=== PATIENT | male | born 1955 | race Caucasian/White ===

== ENCOUNTER 2022-06-04 07:45 | Outpatient (RCR) | payer OTHER, SELFPAY ==
--- NOTE | 2022-05-09 14:23 | URNOTE ---
Request received from [facility] for prior authorization of Rituxan [id number]. Per [employer] Intake Team Rituxan has been approved from 12/25/2021 through 12/25/2023. Authorization #[id number]
[2022-06-04 08:00] VITALS: BP 111/63; PULSE 47; RESP 16; TEMP 36.1; O2SAT 97
[2022-06-04 08:53] LABS: Chloride* 106 mmol/L (96-114); Potassium* 4.6 mmol/L (3.6-5.1); Sodium* 137 mmol/L (135-149)
[2022-06-04 08:54] LABS: Hematocrit 39.3 % (37.0-53.0); Hemoglobin* 13.3 gm/dL (13.5-17.5); Mean Corpuscular HGB Conc 34 gm/dL (32-36); Mean Corpuscular Hemoglobin 29 pg (26-34); Mean Corpuscular Volume 86 fL (80-100); Platelet Count* 160 K/uL (140-440); Red Blood Count 4.57 m/uL (4.30-5.90); White Blood Count* 6.95 K/uL (4.50-11.00)
[2022-06-04 08:55] LABS: Basophils Percent Auto 0.1 % (0.0-3.0); Eosinophils Percent Auto 4.9 % (0.0-7.0); Immature Granulocytes Pct Auto 0.4 %; Monocytes Percent Auto 11.1 % (0.0-11.0); Neutrophils Percent Auto 65.5 % (42.0-72.0); Slide Review Reflex No
[2022-06-04 08:56] LABS: Blood Urea Nitrogen* 39 mg/dL (7-30); Carbon Dioxide* 23 mmol/L (20-32); Creatinine* 1.7 mg/dL (0.5-1.5); Estimated Glomerular Filt Rate 44 ml/min
[2022-06-04 08:57] LABS: Calcium* 9.1 mg/dL (8.4-10.6); Glucose* 127 mg/dL (60-115)
[2022-06-04] MEDS: HYDROCORTISONE SOD SUCCINATE 50 MG/ML inj 100 MG IVP (09:46)
[2022-06-04] MEDS: ACETAMINOPHEN 325 MG TABLET 650 MG PO (09:46)
[2022-06-04] MEDS: diphenhydrAMINE 25 MG CAPSULE 50 MG PO (09:47)
--- NOTE | 2022-06-04 15:21 | ONC.NURNOTE ---
Pt tolerated Rituxan well; infused beginning at 50 ml/hr, increase by 50 ml/hr q 30 min until 400 ml/hr.
== END 2022-12-01 23:59 | disposition home or self-care (01) ==
LOC: CCIC 07:45
PROVIDERS: Internal Medicine Hematology & Oncology; Visit Provider Clinical Nurse Specialist
DX: D89.89 Other specified disorders involving the immune mechanism, not elsewhere classified (principal)
CPT/HCPCS: 36415; 80048; 85025; 96376; 96413; 96415; A9270; J1720; J7030; J9312

== ENCOUNTER 2023-04-11 10:41 | Outpatient (CLI) | payer OTHER, SELFPAY ==
[2023-04-11 11:28] LABS: Appearance Urine Clear (Clear); Bilirubin Urine Negative (Negative); Blood Urine Negative (Negative); Color Urine Yellow (Yellow); Glucose Urine Negative (Negative); Ketones Urine Negative (Negative); Leukocyte Esterase Urine Negative (Negative); Nitrite Urine Negative (Negative); Protein Urine Negative (Negative); Specific Gravity Urine 1.025 (1.000-1.030); Urobilinogen Urine 0.2 (0.2-1.0); pH Urine 5.5 (5.0-8.5)
[2023-04-11 11:29] LABS: Basophils Absolute Auto 0.02 K/uL (0.00-0.30); Basophils Percent Auto 0.3 % (0.0-3.0); Eosinophils Absolute Auto 0.24 K/uL (0.00-0.50); Eosinophils Percent Auto 3.5 % (0.0-7.0); Hematocrit 37.6 % (37.0-53.0); Hemoglobin* 12.1 gm/dL (13.5-17.5); Immature Granulocytes Abs Auto 0.03 K/uL (0.00-0.30); Immature Granulocytes Pct Auto 0.4 %; Lymphocytes Percent Auto 19.1 % (20-44); Mean Corpuscular HGB Conc 32 gm/dL (32-36); Mean Corpuscular Hemoglobin 29 pg (26-34); Mean Corpuscular Volume 90 fL (80-100); Monocytes Percent Auto 11.2 % (0.0-11.0); Neutrophils Absolute Auto 4.45 K/uL (1.7-7.0); Neutrophils Percent Auto 65.5 % (42.0-72.0); Platelet Count* 136 K/uL (140-440); RDW Coefficient of Variation % 13.9 % (11.5-15.5); Red Blood Count 4.19 m/uL (4.30-5.90)
[2023-04-11 11:32] LABS: Slide Review Reflex No
[2023-04-11 11:42] LABS: Albumin* 4.1 g/dL (3.3-5.0); Chloride* 110 mmol/L (96-114); Total Protein Urine < 5 mg/dL
[2023-04-11 11:43] LABS: Creatinine Urine 96.4 mg/dL; Potassium* 4.3 mmol/L (3.6-5.1); Sodium* 144 mmol/L (135-149)
[2023-04-11 11:45] LABS: Amylase* 95 U/L (18-89)
[2023-04-11 11:46] LABS: Alkaline Phosphatase* 45 U/L (40-150); Aspartate Amino Transferase* 22 U/L (12-35); Bilirubin Total* 0.4 mg/dL (0.1-1.5); Blood Urea Nitrogen* 27 mg/dL (7-30); Carbon Dioxide* 26 mmol/L (20-32); Creatinine* 1.4 mg/dL (0.5-1.5); Estimated Glomerular Filt Rate 55 ml/min; Glucose* 118 mg/dL (60-115); Total Protein* 6.5 g/dL (6.0-8.3)
[2023-04-11 11:47] LABS: Alanine Aminotransferase* 25 U/L (4-50); Calcium* 8.8 mg/dL (8.4-10.6); Lipase* 179 U/L (23-300)
[2023-04-11 11:50] LABS: C Reactive Protein* < 0.5 mg/dL (0.5-1.0)
[2023-04-11 12:20] LABS: Erythrocyte SedimentationRate* 11 mm/hr (2-15)
== END 2023-04-11 10:42 | disposition home or self-care (01) ==
PROVIDERS: PCP Internal Medicine Rheumatology; Visit Provider Internal Medicine Rheumatology
DX: D89.89 Other specified disorders involving the immune mechanism, not elsewhere classified (principal); K86.1 Other chronic pancreatitis; K83.09 Other cholangitis
CPT/HCPCS: 36415; 80048; 80076; 81003; 82150; 82570; 82787; 83690; 84156; 85025; 85651; 86140

== ENCOUNTER 2024-12-13 09:37 | Emergency (ER) | payer MEDICARE, SELFPAY ==
[2024-12-13 09:44] VITALS: BP 145/93; PULSE 49; RESP 16; TEMP 36.2; O2SAT 96; BMI 30.1
--- NOTE | 2024-12-13 10:42 | CRLHL7_ITS ---
For Patients: As a result of the Century Cures Act, medical imaging exams and procedure reports are released immediately into your electronic medical record. You may view this report before your referring provider. If you have questions, please contact your health care provider. INDICATION: Left-sided abdominal pain x1 month. Bowel changes. History of IgG4 sclerosing disease. TECHNIQUE: CT abdomen and pelvis acquired with 97 cc of Isovue 370 IV contrast. COMPARISON: CT abdomen and pelvis 02/06/2023. FINDINGS: Lower chest: Stable calcified granuloma in the right lower lobe. No pleural or pericardial effusions. Liver: Fatty change. No focal lesion or intrahepatic biliary ductal dilatation. Spleen: Small calcified granulomata. Pancreas: New ill-defined heterogeneous enlargement of the body and tail of the pancreas with loss of normal contour and subtle ill-defined low-attenuation, for example on axial image 39 of series 2. No well-defined pancreatic lesion. No peripancreatic fluid collection. 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 Gallbladder and bile ducts: No calcified stones or biliary ductal dilatation. Kidneys: Bilateral cysts, unchanged. No hydronephrosis. Adrenal glands: Unremarkable. GI tract: Normal appendix. No bowel obstruction. Stable mild stranding of the right abdominal mesentery. No new focal inflammatory changes. Fat containing umbilical hernia, unchanged. No free air or free fluid. Lymph nodes: No pathologic lymphadenopathy. Vascular structures: Atherosclerotic disease. New mild aneurysmal dilatation of the infrarenal abdominal aorta on image 76 measures 2.9 cm. Pelvic Organs: Unremarkable. Bones: No acute or suspicious osseous abnormality. Degenerative changes spine and pelvis. IMPRESSION: 1. 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 Attention on imaging follow up recommended after trial of conservative therapy. No peripancreatic fluid collection. 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 2. Fatty change of the liver. 3. New mild aneurysmal dilatation of the abdominal aorta measuring 2.9 cm. Dictated by Yaya Gerardo MD @ 12/13/2024 12:33:31 PM Please note that all CT scans at this facility use dose modulation, iterative reconstruction, and/or weight-based dosing when appropriate to reduce radiation dose to as low as reasonably achievable. Dictated by: Yaya Gerardo MD @ 12/13/2024 12:33:45 (Electronically Signed)
--- NOTE | 2024-12-13 11:07 | ED.ABDPAIN ---
HPI - Abdominal Pain General Date Seen: 12/13/24 Chief Complaint: Abdominal Pain Stated Complaint: left stomach pain x 1 month Time Seen by Provider: 12/13/24 10:14 Source: patient Mode of arrival: ambulatory Limitations: no limitations History of Present Illness HPI narrative: Patient is a 69-year-old male with a history of pancreatitis and IgG4 sclerosing disease presenting to the emergency department for left-sided abdominal pain. He states for the past month he has been having this left-sided abdominal pain. Pain is in the mid axillary line just below rib 12. He said his kinesiologists and was told it might be his plain detox fine so he was started on some supplements. 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 Lab work came back with slightly elevated lipase so he came for evaluation. Also states having decreased bowel movements. Has been needing to use MiraLax for his constipation which has been helping and he had a normal bowel movement yesterday. Denies fevers, chills, dysuria, chest pain, shortness of breath, headache, lightheadedness, weakness, numbness. Has had previous abdominal surgery. Laparoscopy was done to diagnose his IgG4 sclerosing disease. No other abdominal surgeries. Has never had pain like this before he states. No other concerns noted. He states the pain is tolerable at this time. Describes it as a squeezing sensation Related Data Home Medications ?Medication ?Instructions ?Recorded ?Confirmed atorvastatin 20 mg tablet 20 mg PO DAILY 06/04/22 08/07/22 hydrochlorothiazide 25 mg tablet 25 mg PO DAILY 06/04/22 08/07/22 lisinopril 20 mg tablet 20 mg PO DAILY 06/04/22 08/07/22 nitroglycerin 0.4 mg sublingual 0.4 mg sublingual Q5M PRN 06/04/22 08/07/22 tablet Allergies Allergy/AdvReac Type Severity Reaction Status Date / Time morphine Allergy Unknown Verified 12/13/24 12:12 shell fish Allergy Unknown Uncoded 12/13/24 12:12 Review of Systems Status of ROS Reports: 10 or more systems reviewed and unremarkable except as noted in History and below [facility] Medical History Biliary stricture ?K83.1 - Obstruction of bile duct (ICD-10) Social History Smoking Status: Never smoker Non-prescribed substance use: denies use service: No Exam Narrative: Exam Narrative: Const: Well-nourished, Well-developed, in mild distress Eyes: PERRL, no conjunctival injection, and symmetrical lids HENT: Atraumatic external nose and ears. Moist mucous membranes. Neck: Symmetric, trachea midline, No thyromegaly. CVS: RRR, No murmurs or gallops. Peripheral pulses 2+ and equal in all extremities RESP: Unlabored respiratory effort. Clear to auscultation bilaterally. GI: Nontender/Nondistended, No rebound or guarding. MSK:Extremities w/o deformity, Normal Active ROM Skin: Warm, Dry. No rashes or lesions. Neuro: Normal Muscle tone, No focal neurological deficits. Psych: Awake, Alert, & Oriented x3. Appropriate mood and affect. Const: Vital Signs, click to edit/add: Vital Signs - 24 hr 12/13/24 09:44 12/13/24 12:21 12/13/24 14:28 Temperature 97.1 F L Pulse Rate [Right Pulse Oximeter] 49 L 46 L 43 L Respiratory Rate 16 14 18 Blood Pressure [Ri ght Upper Arm] 145/93 H 145/82 H 146/89 H Pulse Oximetry 96 96 96 Oxygen Delivery Me thod Room Air Room Air Room Air Course Vital Signs Vital signs: Initial Vital Signs Temperature 97.1 F L 12/13/24 09:44 Temperature Source Temporal Artery Scan 12/13/24 09:44 Pulse Rate 49 L 12/13/24 09:44 Respiratory Rate 16 12/13/24 09:44 Blood Pressure 145/93 H 12/13/24 09:44 Blood Pressure Mean 110 H 12/13/24 09:44 Blood Pressure Position Sitting 12/13/24 09:44 Pulse Oximetry 96 12/13/24 09:44 Oxygen Delivery Method Room Air 12/13/24 09:44 Vital Signs Temperature 97.1 F L 12/13/24 09:44 Pulse Rate 49 L 12/13/24 09:44 Respiratory Rate 16 12/13/24 09:44 Blood Pressure 145/93 H 12/13/24 09:44 Pulse Oximetry 96 03/31/25 09:44 Oxygen Delivery Method Room Air 12/13/24 09:44 Temperature 97.1 F L 12/13/24 09:44 Pulse Rate 43 L 12/13/24 14:28 Respiratory Rate 18 12/13/24 14:28 Blood Pressure 146/89 H 12/13/24 14:28 Pulse Oximetry 96 12/13/24 14:28 Oxygen Delivery Method Room Air 12/13/24 14:28 Medications Administered Medications: Discontinued Medications Generic Name Dose Route Start Last Admin Trade Name Kayli PRN Reason Stop Dose Admin Lactated Ringer's 1,000 mls @ 1,000 mls/hr 12/13/24 13:51 12/13/24 14:22 Lactated Ringers 1000 Ml IV 12/13/24 14:50 1,000 mls/hr .Q1H ONE Administration MDM - Abdominal Pain MDM Narrative Medical decision making narrative: Patient is a 69-year-old male presenting to emergency department for abdominal pain had is mostly located on the left side in the midaxillary region. Pain is not reproducible with palpation. Has been told he has an elevated lipase although the location of the pain does not seem consistent with pancreatitis. No history of bowel obstruction has had laparoscopic surgery to diagnose his autoimmune disorder. Seems unlikely to be musculoskeletal as it was not reproducible with palpation and does not quite seem the right position for a kidney stone. Diverticulitis, appendicitis, gallbladder or liver disease seem less likely at this time. Will do a CT scan for better evaluation. Not requesting any pain or nausea medicine at this time. Symptoms could be an uncommon presentation of ACS her EKG and troponin will be ordered. Also order BMP, CBC, urinalysis. EKG shows sinus bradycardia but he is not having any symptoms of this bradycardia at this time. EKG also shows inverted T-waves in V2 and V3. Cannot a previous EKG to compare to. Urinalysis and troponin within normal limits. Patient's lipase came back elevated at 640. His AST came back at 874 and ALT was 831. I a.m. unable to see his previous labs in [facility] so I did have his lab work from last week faxed over to me. It shows at that time he had a lipase of 119, ALT 13 AST 14. His bilirubin is within normal limits along with a normal alk-phos. 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 I did speak to our on-call sternal surgeon, Dr. [place], under she recommends an MRCP but this time she cannot say for certain as she would expect the patient's bilirubin to be elevated to there was an obstruction. I had spoke to his restaurant district manager Dr. Helms, any also cannot fully explain why the patient has these elevated LFTs. Does state that here recommends reviewing the case with GI prior to starting steroids. Did ask for a copy of the CT report and his labs to be faxed his office. This was sent. Since the patient was previously seen through [facility] I did speak to their on-call GI specialist, Dr. Still. She could not say for certain was causing the symptoms either and due to the uncertain etiology of his symptoms does recommend transfer at this time so he can have more quicker and thorough evaluation for what is causing the symptoms. Patient is agreeable to this plan. I spoke to the hospitalist Dr. Hernandez who accepted him for admission. Lab Data Labs: Lab Results 12/13/24 12/13/24 12/13/24 Range/Units 11:03 11:10 11:35 WBC 5.31 (4.50-11.00) K/uL RBC 4.56 (4.30-5.90) m/uL Hgb 13.7 (13.5-17.5) gm/dL Hct 40.8 (37.0-53.0) % MCV 90 (80-100) fL MCH 30 (26-34) pg MCHC 34 (32-36) gm/dL RDW Coeff of Judson 13.3 (11.5-15.5) % Plt Count 115 L (140-440) K/uL Neut % (Auto) 68.1 (42.0-72.0) % Lymph % (Auto) 16.6 L (20-44) % Sawyer % (Auto) 12.8 H (0.0-11.0) % Eos % (Auto) 1.9 (0.0-7.0) % Baso % (Auto) 0.4 (0.0-3.0) % Neut # (Auto) 3.62 (1.7-7.0) K/uL Lymph # (Auto) 0.90 (0.90-2.90) K/uL Sawyer # (Auto) 0.70 (0.00-0.90) K/UL Eos # (Auto) 0.10 (0.00-0.50) K/uL Baso # (Auto) 0.02 (0.00-0.30) K/uL Abs Immat Gran (auto) 0.01 (0.00-0.30) K/uL Imm/Tot Granulo (auto) 0.2 % Sodium 138 (135-149) mmol/L Potassium 4.5 (3.6-5.1) mmol/L Chloride 106 (96-114) mmol/L Carbon Dioxide 25 (20-32) mmol/L Anion Gap 7 (7-15) mEq/L BUN 17 (7-30) mg/dL Creatinine 0.9 (0.5-1.5) mg/dL Estimated Creat Clear 69.35 Estimated GFR 94 ml/min Glucose 114 (60-115) mg/dL Calcium 9.1 (8.4-10.6) mg/dL Total Bilirubin 0.9 (0.1-1.5) mg/dL Direct Bilirubin 0.3 (0.0-0.5) mg/dL AST 874 H (12-35) U/L ALT 831 H (4-50) U/L Alkaline Phosphatase 129 (40-150) U/L Troponin I < 0.01 (0.01-0.04) ng/mL C-Reactive Protein < 0.5 L (0.5-1.0) mg/dL Total Protein 7.0 (6.0-8.3) g/dL Albumin 4.5 (3.3-5.0) g/dL Lipase 640 H (23-300) U/L Urine Color Yellow (Yellow) Urine Appearance Clear (Clear) Urine pH 5.5 (5.0-8.5) Ur Specific [place] 1.010 (1.000-1.030) Urine Protein Negative (Negative) Urine Glucose (UA) Negative (Negative) Urine Ketones Negative (Negative) Urine Blood Trace-intact A (Negative) Urine Nitrite Negative (Negative) Urine Bilirubin Negative (Negative) Urine Urobilinogen 0.2 (0.2-1.0) Ur Leukocyte Esterase Negative (Negative) Urine RBC 0-2 (0-2) Urine WBC 0-2 (0-5) Ur Squamous Epith Cells None (None-Few) Urine Bacteria None (None) Lab Acknowledgement Test Added 12/13/24 Range/Units 13:27 WBC (4.50-11.00) K/uL RBC (4.30-5.90) m/uL Hgb (13.5-17.5) gm/dL Hct (37.0-53.0) % MCV (80-100) fL MCH (26-34) pg MCHC (32-36) gm/dL RDW Coeff of Judson (11.5-15.5) % Plt Count (140-440) K/uL Neut % (Auto) (42.0-72.0) % Lymph % (Auto) (20-44) % Sawyer % (Auto) (0.0-11.0) % Eos % (Auto) (0.0-7.0) % Baso % (Auto) (0.0-3.0) % Neut # (Auto) (1.7-7.0) K/uL Lymph # (Auto) (0.90-2.90) K/uL Sawyer # (Auto) (0.00-0.90) K/UL Eos # (Auto) (0.00-0.50) K/uL Baso # (Auto) (0.00-0.30) K/uL Abs Immat Gran (auto) (0.00-0.30) K/uL Imm/Tot Granulo (auto) % Sodium (135-149) mmol/L Potassium (3.6-5.1) mmol/L Chloride (96-114) mmol/L Carbon Dioxide (20-32) mmol/L Anion Gap (7-15) mEq/L BUN (7-30) mg/dL Creatinine (0.5-1.5) mg/dL Estimated Creat Clear Estimated GFR ml/min Glucose (60-115) mg/dL Calcium (8.4-10.6) mg/dL Total Bilirubin (0.1-1.5) mg/dL Direct Bilirubin (0.0-0.5) mg/dL AST (12-35) U/L ALT (4-50) U/L Alkaline Phosphatase (40-150) U/L Troponin I (0.01-0.04) ng/mL C-Reactive Protein (0.5-1.0) mg/dL Total Protein (6.0-8.3) g/dL Albumin (3.3-5.0) g/dL Lipase (23-300) U/L Urine Color (Yellow) Urine Appearance (Clear) Urine pH (5.0-8.5) Ur Specific [place] (1.000-1.030) Urine Protein (Negative) Urine Glucose (UA) (Negative) Urine Ketones (Negative) Urine Blood (Negative) Urine Nitrite (Negative) Urine Bilirubin (Negative) Urine Urobilinogen (0.2-1.0) Ur Leukocyte Esterase (Negative) Urine RBC (0-2) Urine WBC (0-5) Ur Squamous Epith Cells (None-Few) Urine Bacteria (None) Lab Acknowledgement Test Added Imaging Data CT scan abdomen and pelvis: Attestation: I have reviewed the pertinent imaging results. Radiologist's impression: 1. 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 Attention on imaging follow up recommended after trial of conservative therapy. No peripancreatic fluid collection. 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 2. Fatty change of the liver. 3. New mild aneurysmal dilatation of the abdominal aorta measuring 2.9 cm. Dictated by Yaya Gerardo MD @ 12/13/2024 12:33:31 PM Please note that all CT scans at this facility use dose modulation, iterative reconstruction, and/or weight-based dosing when appropriate to reduce radiation dose to as low as reasonably achievable. Dictated by: Yaya Gerardo MD @ 12/13/2024 12:33:45 ECG Data Attestation: I personally reviewed and interpreted this ECG as follows: Prior ECG tracings: not available for review Interpretation: Sinus bradycardia with a rate 54 beats per minute, normal intervals, normal axis, no ST abnormalities. There are some T-wave inversions in V2 and V3. 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, Pancreatitis, recurrent, Transaminitis Patient Disposition: Xfer Other Condition: Stable Prescriptions: No Action atorvastatin 20 mg tablet 20 mg PO DAILY hydrochlorothiazide 25 mg tablet 25 mg PO DAILY Patient Comments: TAKE 1 TABLET BY MOUTH DAILY lisinopril 20 mg tablet 20 mg PO DAILY Patient Comments: TAKE 1 TABLET BY MOUTH DAILY nitroglycerin 0.4 mg tablet, sublingual 0.4 mg sublingual Q5M PRN Patient Comments: TAKE 1 TABLET SUBLINGUALLY EVERY 5 MINUTES NEEDED DIRECTED Follow Up/Referrals: Cirilo Cano MD [Primary Care Provider] - Stand Alone [facility]: [facility] Info Instructions
[2024-12-13 11:11] LABS: Basophils Absolute Auto 0.02 K/uL (0.00-0.30); Basophils Percent Auto 0.4 % (0.0-3.0); Eosinophils Percent Auto 1.9 % (0.0-7.0); Hematocrit 40.8 % (37.0-53.0); Hemoglobin* 13.7 gm/dL (13.5-17.5); Immature Granulocytes Abs Auto 0.01 K/uL (0.00-0.30); Immature Granulocytes Pct Auto 0.2 %; Lymphocytes Percent Auto 16.6 % (20-44); Mean Corpuscular HGB Conc 34 gm/dL (32-36); Mean Corpuscular Hemoglobin 30 pg (26-34); Mean Corpuscular Volume 90 fL (80-100); Monocytes Percent Auto 12.8 % (0.0-11.0); Neutrophils Absolute Auto 3.62 K/uL (1.7-7.0); Neutrophils Percent Auto 68.1 % (42.0-72.0); Platelet Count* 115 K/uL (140-440); RDW Coefficient of Variation % 13.3 % (11.5-15.5); Red Blood Count 4.56 m/uL (4.30-5.90); White Blood Count* 5.31 K/uL (4.50-11.00)
[2024-12-13 11:17] LABS: Slide Review Reflex No
[2024-12-13 11:20] LABS: Appearance Urine Clear (Clear); Bilirubin Urine Negative (Negative); Blood Urine Trace-intact (Negative); Color Urine Yellow (Yellow); Glucose Urine Negative (Negative); Ketones Urine Negative (Negative); Leukocyte Esterase Urine Negative (Negative); Nitrite Urine Negative (Negative); Protein Urine Negative (Negative); Urobilinogen Urine 0.2 (0.2-1.0); pH Urine 5.5 (5.0-8.5)
[2024-12-13 11:35] LABS: Albumin* 4.5 g/dL (3.3-5.0)
[2024-12-13 11:36] LABS: Chloride* 106 mmol/L (96-114); Potassium* 4.5 mmol/L (3.6-5.1); Sodium* 138 mmol/L (135-149)
[2024-12-13 11:38] LABS: Alkaline Phosphatase* 129 U/L (40-150); Anion Gap 7 mEq/L (7-15); Bilirubin Direct* 0.3 mg/dL (0.0-0.5); Bilirubin Total* 0.9 mg/dL (0.1-1.5); Blood Urea Nitrogen* 17 mg/dL (7-30); Carbon Dioxide* 25 mmol/L (20-32); Creatinine* 0.9 mg/dL (0.5-1.5); Est. Creatinine Clearance* 69.35; Estimated Glomerular Filt Rate 94 ml/min
[2024-12-13 11:39] LABS: Calcium* 9.1 mg/dL (8.4-10.6); Glucose* 114 mg/dL (60-115); Lipase* 640 U/L (23-300)
[2024-12-13 11:40] LABS: RBC Urine 0-2 (0-2); WBC Urine 0-2 (0-5)
[2024-12-13 11:50] LABS: Alanine Aminotransferase* 831 U/L (4-50); Aspartate Amino Transferase* 874 U/L (12-35)
[2024-12-13 11:57] LABS: Troponin I* < 0.01 ng/mL (0.01-0.04)
[2024-12-13 12:21] VITALS: BP 145/82; PULSE 46; RESP 14; O2SAT 96
[2024-12-13 13:45] LABS: C Reactive Protein* < 0.5 mg/dL (0.5-1.0)
[2024-12-13] MEDS: LACTATED RINGERS 1000 ML 1,000 ML IV (14:22)
[2024-12-13 14:28] VITALS: BP 146/89; PULSE 43; RESP 18; O2SAT 96
[2024-12-13 15:10] VITALS: BP 144/82; PULSE 68; RESP 17; O2SAT 96
--- NOTE | 2024-12-13 15:39 | PC.NURSE ---
report give to [facility], pt to [facility] via private car with
== END 2024-12-13 15:40 | disposition other institution (70) ==
PROVIDERS: Emergency Provider Student in an Organized Health Care Education/Training Program; PCP Internal Medicine Rheumatology
DX: D89.84 IgG4-related disease (principal); K85.90 Acute pancreatitis without necrosis or infection, unspecified; R74.01 Elevation of levels of liver transaminase levels
CPT/HCPCS: 36415; 74177; 80048; 80076; 81001; 83690; 84484; 85025; 86140; 93005; 99285; J7120; Q9967